=== PATIENT | female | born 1965 | race African-American/Black ===

== ENCOUNTER → 2020-09-08 | Outpatient (CLI) | payer BC, OTHER ==
[~2020-09-08] MED LIST: BENICAR20 MG PO; MECLIZINE HCL25 M1 PO; SINGULAIR 10 MG10 M1 PO; ZYRTEC10 M2 PO
== END ==
LOC: SJCVCIMAG 11:47
PROVIDERS: ATTEND Internal Medicine
DX: H53.9 Unspecified visual disturbance (principal); I10 Essential (primary) hypertension

== ENCOUNTER → 2020-10-10 | Outpatient (CLI) | payer BC, OTHER | LOC: SJCVCIMAG 07:46 | PROVIDERS: ATTEND Internal Medicine | DX: I07.1 Rheumatic tricuspid insufficiency (principal); I11.9 Hypertensive heart disease without heart failure ==

== ENCOUNTER → 2021-03-27 | Outpatient (CLI) | payer BC, OTHER | LOC: BC 12:37 | PROVIDERS: ATTEND Family Medicine | DX: Z12.31 Encounter for screening mammogram for malignant neoplasm of breast (principal); N64.89 Other specified disorders of breast ==

== ENCOUNTER → 2021-04-12 | Outpatient (CLI) | payer BC, OTHER ==
--- NOTE | 2021-04-17 18:06 | PATH ---
[facility] [address] [place] [address] PATHOLOGY RPT PROCEDURE Name: PATRICIA MASON Mariposa Room #: REG Cristina Minor.#: [id number] Admission: 04/12/21 Date of : 63 Discharge: Report #: [id number] Path Case #: [id number] [facility] Accession Number: [id number] . 01 Material submitted: . breast - RIGHT BREAST MASS 6 O'CLOCK 5CM FROM NIPPLE. Modifiers: right, 6:00, 5CM FN . 01 Clinical history: . US/ULTRA/CORE BIOPSY/ CYST ASPIR/US/UNI/ R BREAST MASS . 02 Diagnosis: Breast, right breast 6:00 mass, needle core biopsy: - INVASIVE POORLY DIFFERENTIATED DUCTAL ADENOCARCINOMA, [place]HAM GRADE III/III, MEASURING 1.2 CM IN GREASTEST DIMENSION IN A SINGLE CORE IN CONTIGUOUS LENGTH. (IUV:stevo; 04/17/2021) QMS 04/17/2021 1426 Local . 02 Comment: Specimen type: Needle core biopsy Tumor site: Right breast mass 6:00 Tumor quantitation: 1.2 cm Histologic type: Invasive ductal carcinoma Histologic grade: [place]ham grade III Tubules, nuclei and mitoses: 3, 3 and 2, respectively LVSI: Not identified Microcalcifications: Present in association with neoplastic tissue Markers: ER, AR, HER2/tiffany, and Ki-67 Block: A1 . . Co-review: [employer] focus was co-reviewed by Dr. Deborah Vincent, who concurs with my diagnosis. . Findings of this case are telephoned to Dr. Nicolas Clarke at 1:38 p.m. on 04/17/21. (IUV:stevo; 04/17/2021) . . 02 Electronically signed: . Yumi Pinzon MD, Pathologist NPI- [id number] . 01 Gross description: . Received in formalin labeled "Patricia Mason and right breast 6:00". [place] [address] PATHOLOGY RPT PROCEDURE Name: PATRICIA MASON V Room #: REG [facility]#: [id number] Admission: 04/12/21 Date of : 63 Discharge: Report #: [id number] Path Case #: [id number] Received are 4 white-yellow fibroadipose breast cores ranging from 0.4-1.2 centimeters in length and 0.1-0.2 cm in diameter. The specimen is entirely submitted in cassette A1. The specimen was collected on 04/12/2021. The time collected and time placed in formalin not specified on the container or requisition. The specimen was received to [facility] on 04/16/2021. The specimen will be removed from formalin in 04/16/2021 at 11:40 PM. The specimen exceeds 72 hours timeframe via the client submission.([facility]; 04/16/2021) [facility] 04/16/2021 1622 [facility] . 02 Pathologist provided ICD-10: C50.911 . 02 CPT . 654606 Specimen Comment: A courtesy copy of this report has been sent to [phone], [phone] Specimen Comment: [id number] Specimen Comment: Report sent to / DR CLARKE Performed at: [address], [place] [id number] MD Naeem Gray MD Phone: [phone] Performed at: [address] [id number] MD Yumi Pinzon MD Phone: [phone]
== END | disposition home or self-care (01) ==
LOC: ULTRA 09:54
PROVIDERS: ATTEND Family Medicine
DX: C50.911 Malignant neoplasm of unspecified site of right female breast (principal); N60.01 Solitary cyst of right breast; R92.1 Mammographic calcification found on diagnostic imaging of breast; Z79.899 Other long term (current) drug therapy; Z88.8 Allergy status to other drugs, medicaments and biological substances